=== PATIENT | male | born 1960 | race Two or more races ===

== ENCOUNTER 2019-10-08 15:03 | Inpatient (IN) | payer MEDICARE, MEDICAID ==
[2019-10-08] VITALS (7 sets, daily range): BP systolic 75–110; BP diastolic 23–75
[~2019-10-08] VITALS: Ht 180.3 cm; Wt 84.8 kg
--- NOTE | 2019-10-08 15:12 | Emergency Room Report ---
History of Present Illness General Chief Complaint: Syncope Source: Patient Present Illness HPI Patient is a 59-year-old male brought in by EMS after increased lightheadedness. Patient had been ambulating in the hot sun prior to onset of symptoms. He had been visiting his doctor's office for a finger injury. Reports having struck his left index finger on a fixed object and was reporting some increased pain to the area. He denies any recent fever or vomiting. He reports feeling somewhat lightheaded. Prior history of hypertension as well as HIV. He is currently on antiviral medications and reports having previously normal viral load and cell count. Primary care physician is Dr. Tay. Patient denies any cough or abdominal pain. Reports having a previous stroke in the past. Allergies: Coded Allergies: SULFAMETHOXAZOLE (Unverified Allergy, Unknown, 10/08/19) TRIMETHOPRIM (Unverified Allergy, Unknown, 10/08/19) COVID-19 Screening Contact w/high risk pt: No Recent Travel to affected area: No Experienced COVID-19 symptoms?: No Patient History Past Medical History: see triage record Reviewed Nursing Documentation: PMH: Agreed; PSxH: Agreed Nursing Documentation-PMH Past Medical History: No History, Except For Hx Hypertension: Yes Hx Cerebrovascular Accident: Yes Review of Systems All Other Systems: negative except mentioned in HPI Physical Exam Vital Signs Date Time Temp Pulse Resp B/P (MAP) Pulse Ox O2 Delivery O2 Flow Rate FiO2 10/08/19 15:02 84 18 90/60 (70) 95 Room Air Sp02 EP Interpretation: reviewed, normal General Appearance: normal inspection, well appearing, no apparent distress, alert, GCS 15 Head: atraumatic ENT: normal ENT inspection, hearing grossly normal, normal voice Neck: normal inspection, full range of motion, supple, no bony tend Respiratory: normal inspection, lungs clear, normal breath sounds, no respiratory distress, no retraction, no wheezing Cardiovascular #1: regular rate, rhythm, no edema Gastrointestinal: normal inspection, normal bowel sounds, non tender, soft, no guarding, no hernia Genitourinary: no CVA tenderness Musculoskeletal: normal inspection, back normal, normal range of motion Neurologic: alert, motor strength/tone normal, vp purchasing III-XII nml as tested, responsive, speech normal, normal inspection Psychiatric: normal inspection, judgement/insight normal, mood/affect normal Medical Decision Making Diagnostic Impression: Primary Impression: Syncope Additional Impressions: HIV (human immunodeficiency virus infection) ROLAND (acute kidney injury) ER Course Patient presented for near syncope. Differential diagnosis include was not limited to myocardial infarction, pulmonary embolism, dehydration, heatstroke among others. Because of complexity of patient's case laboratory tests and imaging studies were ordered. Patient was noted to be persistently hypotensive in the emergency department. He was given IV fluids without any change in his blood pressure. A EKG interpreted by me showed normal sinus rhythm with no acute ST or T wave changes consistent with recent myocardial infarction. Patient was noted to be taking blood pressure medication appears to be relatively Patient will be admitted for further monitoring and treatment. Labs Test 10/08/19 15:16 10/08/19 15:40 10/08/19 16:00 White Blood Count 5.4 K/UL (4.8-10.8) Red Blood Count 4.35 M/UL (4.70-6.10) Hemoglobin 13.9 G/DL (14.2-18.0) Hematocrit 41.5 % (42.0-52.0) Mean Corpuscular Volume 95 FL (80-99) Mean Corpuscular Hemoglobin 32.0 PG (27.0-31.0) Mean Corpuscular Hemoglobin Concent 33.6 G/DL (32.0-36.0) Red Cell Distribution Width 12.5 % (11.6-14.8) Platelet Count 163 K/UL (150-450) Mean Platelet Volume 7.8 FL (6.5-10.1) Neutrophils (%) (Auto) 48.5 % (45.0-75.0) Lymphocytes (%) (Auto) 38.5 % (20.0-45.0) Monocytes (%) (Auto) 10.4 % (1.0-10.0) Eosinophils (%) (Auto) 1.4 % (0.0-3.0) Basophils (%) (Auto) 1.2 % (0.0-2.0) Sodium Level 141 MMOL/L (136-145) Potassium Level 4.2 MMOL/L (3.5-5.1) Chloride Level 106 MMOL/L (98-107) Carbon Dioxide Level 24 MMOL/L (21-32) Anion Gap 11 mmol/L (5-15) Blood Urea Nitrogen 39 mg/dL (7-18) Creatinine 2.4 MG/DL (0.55-1.30) Estimat Glomerular Filtration Rate 28.0 mL/min (>60) Glucose Level 151 MG/DL (74-106) Calcium Level 8.8 MG/DL (8.5-10.1) Total Bilirubin 0.7 MG/DL (0.2-1.0) Aspartate Amino Transf (AST/SGOT) 24 U/L (15-37) Alanine Aminotransferase (ALT/SGPT) 34 U/L (12-78) Alkaline Phosphatase 58 U/L (46-116) Total Creatine Kinase 104 U/L (26-308) Troponin I 0.000 ng/mL (0.000-0.056) Pro-B-Type Natriuretic Peptide 86 pg/mL (0-125) Total Protein 6.7 G/DL (6.4-8.2) Albumin 3.6 G/DL (3.4-5.0) Globulin 3.1 g/dL Albumin/Globulin Ratio 1.2 (1.0-2.7) Lipase 129 U/L (73-393) D-Dimer 0.34 mg/L FEU (0.00-0.49) Urine Color Yellow Urine Appearance Cloudy Urine pH 5 (4.5-8.0) Urine Specific [place] 1.025 (1.005-1.035) Urine Protein 2+ (NEGATIVE) Urine Glucose (UA) Negative (NEGATIVE) Urine Ketones 1+ (NEGATIVE) Urine Blood 1+ (NEGATIVE) Urine Nitrite Negative (NEGATIVE) Urine Bilirubin 1+ (NEGATIVE) Urine Ictotest Negative (NEGATIVE) Urine Urobilinogen 1 MG/DL (0.0-1.0) Urine Leukocyte Esterase 1+ (NEGATIVE) Urine RBC 0-2 /HPF (0 - 0) Urine WBC 0-2 /HPF (0 - 0) Urine Squamous Epithelial Cells Few /LPF (NONE/OCC) Urine Bacteria Moderate /HPF (NONE) Urine Hyaline Casts Tntc /LPF (NONE) EKG Diagnostic Results Rate: normal Rhythm: NSR ST Segments: no acute changes Rhythm Strip Diag. Results EP Interpretation: yes Rhythm: NSR, no PVC's, no ectopy Last Vital Signs Date Time Temp Pulse Resp B/P (MAP) Pulse Ox O2 Delivery O2 Flow Rate FiO2 /5/20 15:02 84 18 90/60 (70) 95 Room Air Status: unchanged Disposition: ADMITTED INPATIENT Condition: Serious Baljit Kilpatrick MD October 08, 2019 15:12
--- NOTE | 2019-10-08 15:20 | NUR ---
ED Nurse Note: Pt walked into ED, came with weakness and dizziness. Pt was walking to wart removal appt and felt that he was going to have LOC, but had no LOC. Pt is alert and orientedx4, ambulatory. Pt is weak. Pt is set up to monitor and placed in isolation room. BP is 95/71.
[2019-10-08 15:48] LABS: BASOPHILS % (AUTO) 1.2 % (0.0-2.0); EOSINOPHILS % (AUTO) 1.4 % (0.0-3.0); HEMATOCRIT 41.5 % (42.0-52.0); HEMOGLOBIN 13.9 G/DL (14.2-18.0); LYMPHOCYTES % (AUTO) 38.5 % (20.0-45.0); MEAN CORPUSCULAR VOLUME 95 FL (80-99); MONOCYTES % (AUTO) 10.4 % (1.0-10.0); NEUTROPHILS % (AUTO) 48.5 % (45.0-75.0); PLATELET COUNT 163 K/UL (150-450); RED BLOOD COUNT 4.35 M/UL (4.70-6.10); RED CELL DISTRIBUTION WIDTH 12.5 % (11.6-14.8); WHITE BLOOD COUNT 5.4 K/UL (4.8-10.8)
--- NOTE | 2019-10-08 15:50 | NUR ---
ED Nurse Note: Dr Kilpatrick notified that BP 81/45. NS will be ordered.
[2019-10-08 15:57] LABS: ANION GAP 11 mmol/L (5-15); BLOOD UREA NITROGEN 39 mg/dL (7-18); CALCIUM 8.8 MG/DL (8.5-10.1); CARBON DIOXIDE 24 MMOL/L (21-32); CHLORIDE 106 MMOL/L (98-107); CREATININE 2.4 MG/DL (0.55-1.30); POTASSIUM 4.2 MMOL/L (3.5-5.1); SODIUM 141 MMOL/L (136-145)
[2019-10-08 16:08] LABS: ALANINE AMINOTRANSFERASE 34 U/L (12-78); ALBUMIN 3.6 G/DL (3.4-5.0); ALBUMIN/GLOBULIN RATIO 1.2 (1.0-2.7); ALKALINE PHOSPHATASE 58 U/L (46-116); ASPARTATE AMINO TRANSFERASE 24 U/L (15-37); BILIRUBIN,TOTAL 0.7 MG/DL (0.2-1.0); CREATINE KINASE 104 U/L (26-308)
[2019-10-08 16:20] LABS: APPEARANCE,URINE CLOUDY; BILIRUBIN, URINE 1+ (NEGATIVE); GLUCOSE, URINE (UA) NEGATIVE (NEGATIVE); KETONES,URINE 1+ (NEGATIVE); LEUKOCYTE ESTERASE ,URINE 1+ (NEGATIVE); NITRITE,URINE NEGATIVE (NEGATIVE); PH,URINE 5 (4.5-8.0); PROTEIN,URINE 2+ (NEGATIVE); UROBILINOGEN,URINE 1 MG/DL (0.0-1.0)
[2019-10-08 16:21] LABS: COLOR,URINE YELLOW
--- NOTE | 2019-10-08 16:53 | NUR ---
HAND-OFF: Report given to Garrick HONEYCUTT.
--- NOTE | 2019-10-08 16:54 | NUR ---
ED Nurse Note: Received handoff report from Mela HONEYCUTT, patient still hypotensive at 83/50. Patient denies dizziness, shortness of breath, or lightheadedness. Dr. Kilpatrick notified.
[2019-10-08] MEDS ORDERED: cefTRIAXone 1 GM in NS 55 ML IVPB ONE (17:00)
--- NOTE | 2019-10-08 17:00 | NUR ---
ED Nurse Note: Patient BP 75/23, Dr. Kilpatrick notified. MD will order Midodrine.
--- NOTE | 2019-10-08 17:02 | Diagnostic Imaging Report ---
Indication: Shortness of breath Technique: One view of the chest Comparison: none Findings: The lungs and pleural spaces are clear. The heart size is normal. Impression: Negative
[2019-10-08] MEDS ORDERED: D5 1/2NS w/KCl 20mEq 1,000 ML IV SCH (17:15)
--- NOTE | 2019-10-08 17:15 | NUR ---
ED Nurse Note: EKG to be repeated, Dr. Kilpatrick at bedside with ultrasound for bedside echo.
--- NOTE | 2019-10-08 17:45 | NUR ---
ED Nurse Note: Patient still asymptomatic, patient laying in bed reading book, states he feels ok, slightly tired. BP 99/58. VRE MRSA swabs obtained. Will continue to monitor.
--- NOTE | 2019-10-08 19:05 | NUR ---
ED Nurse Note: Received report from YINKA Chahal. Patient resting in bed, no acute distress noted.
--- NOTE | 2019-10-08 19:05 | NUR ---
HAND-OFF: Report given to Sandy HONEYCUTT.
--- NOTE | 2019-10-08 19:55 | NUR ---
ED Nurse Note: Report given to TALAT in SDU.
--- NOTE | 2019-10-08 20:13 | NUR ---
TRANSFER TO FLOOR: Patient transferred to SDU as ordered, per ERMD. Report given to YINKA GILLILAND. Patient transported via gurney on ACLS protocol with environmental monitoring specialist accompanied by 1 RN and patient support tech in stable condition.
--- NOTE | 2019-10-08 20:20 | NUR ---
NURSE NOTES: Received patient from YINKA [facility]. Pt awake oriented x 4, afebrile, able to communicate needs, no pain at this time and has no respiratory distress at room air saturating 100%. No complains of dizziness at this time.ekg monitor tech applied showing sinus rhythm. With right hand 18 G. With left forearm 18g IV lines. With Bed rails are up. Head of bed elevated. Needs were attended. Continue to monitor patient Addendum: 10/08/19 at 2042 by TALAT Cline RN Additional: Call light within reach. Will call Dr Adrian for admission orders
--- NOTE | 2019-10-08 20:37 | NUR ---
NURSE NOTES: Placed a call to Dr Adrian and left a voicemail to call us back for new admission orders. Awaiting response
--- NOTE | 2019-10-08 21:24 | NUR ---
NURSE NOTES: Left a follow up message to Dr Adrian. Awaiting for response.
--- NOTE | 2019-10-08 21:30 | NUR ---
NURSE NOTES: Received a message from Dr Adrian for admission orders of patient then carried out.
[2019-10-08] MEDS ORDERED: Acetaminophen 500mg (ES) tab ORAL PRN ×2 (21:45)
[2019-10-08] MEDS: D5 1/2NS 1,000 ML IV SCH (22:55)
[2019-10-09] VITALS: BP 111/60
--- NOTE | 2019-10-09 01:10 | NUR ---
NURSE NOTES: Patient asleep in bed, afebrile and has no respiratory distress. Call light within reach. bed in lowest position. Bed rails are up. Continue to monitor the patient.
[2019-10-09 04:00] VITALS: BP 100/57
[2019-10-09 06:22] LABS: HEMATOCRIT 37.6 % (42.0-52.0); HEMOGLOBIN 13.5 G/DL (14.2-18.0); MEAN CORPUSCULAR VOLUME 91 FL (80-99); PLATELET COUNT 150 K/UL (150-450); RED BLOOD COUNT 4.15 M/UL (4.70-6.10); WHITE BLOOD COUNT 5.6 K/UL (4.8-10.8)
--- NOTE | 2019-10-09 07:05 | NUR ---
HAND-OFF: Report given to Bruce Kelly RN. Pt stable and asleep in bed. Continue current care plan.
[2019-10-09 07:08] LABS: ALANINE AMINOTRANSFERASE 30 U/L (12-78); ALKALINE PHOSPHATASE 53 U/L (46-116); ANION GAP 9 mmol/L (5-15); ASPARTATE AMINO TRANSFERASE 19 U/L (15-37); BILIRUBIN,TOTAL 0.5 MG/DL (0.2-1.0); BLOOD UREA NITROGEN 29 mg/dL (7-18); CALCIUM 8.2 MG/DL (8.5-10.1); CARBON DIOXIDE 24 MMOL/L (21-32); CHLORIDE 109 MMOL/L (98-107); CREATININE 1.3 MG/DL (0.55-1.30); POTASSIUM 3.8 MMOL/L (3.5-5.1); SODIUM 142 MMOL/L (136-145)
--- NOTE | 2019-10-09 07:30 | NUR ---
NURSE NOTES: Per night nurse report, patient is unable to remember home medications and does not have anyone who can bring in list of home medications including antiretroviral medications. Noted. Will continue to monitor patient.
--- NOTE | 2019-10-09 07:55 | NUR ---
NURSE NOTES: Patient complained of soft diet. Patient noted able to swallow and chew meal without difficulty, no coughing noted. Contacted and informed Dr. Adrian of assessments, Dr. Adrian acknowledged and ordered to change diet to Regular diet. Order entered, noted, and carried out. Will continue to monitor patient.
[2019-10-09 08:00] VITALS: BP 142/70
--- NOTE | 2019-10-09 09:00 | NUR ---
NURSE NOTES: Patient noted alert and oriented x 4, able to follow commands. Instructed to use call light when assistance needed, call light is placed next to patient. Patient noted steady on feet when using urinal. Will continue to monitor patient.
[2019-10-09 12:00] VITALS: BP 120/67
[2019-10-09] MEDS: D5 1/2NS 1,000 ML IV SCH (12:22)
--- NOTE | 2019-10-09 13:10 | NUR ---
NURSE NOTES: Dr. Stuart seen and examined patient at bedside. This nurse informed Dr. Stuart that patient's heart rate goes as low as 55 bpm sinus bradycardia, BP 120/64. Dr. Stuart acknowledged and ordered TSH, T4, and troponin lab draws for tomorrow AM. Transfer patient to telemetry. Orders entered, noted, and carried out.
--- NOTE | 2019-10-09 13:23 | Cardiac Electrophysiology PN ---
Subjective Subjective [id number] Objective Last 24 Hour Vital Signs Date Time Temp Pulse Resp B/P (MAP) Pulse Ox O2 Delivery O2 Flow Rate FiO2 10/09/19 12:00 Room Air 10/09/19 12:00 96.3 63 18 120/67 (84) 100 64 10/09/19 09:00 Room Air 10/09/19 08:00 57 10/09/19 08:00 96.6 64 18 142/70 (94) 100 64 10/09/19 04:00 Room Air 10/09/19 04:00 96.8 60 100/57 (71) 10/09/19 03:52 54 10/09/19 00:00 Room Air 10/09/19 00:00 97.4 63 111/60 (77) 10/08/19 23:38 65 10/08/19 20:46 Room Air 10/08/19 20:13 97.9 62 17 112/68 99 Room Air 10/08/19 19:30 56 16 102/70 100 Room Air 10/08/19 18:58 59 17 89/56 100 Room Air 10/08/19 17:45 65 18 99/58 99 Room Air 10/08/19 17:39 97.5 67 17 89/61 99 Room Air 10/08/19 17:15 65 17 110/75 99 Room Air 10/08/19 17:00 64 18 75/23 99 Room Air 10/08/19 15:20 96.9 79 17 95/71 97 Room Air 10/08/19 15:02 84 18 90/60 (70) 95 Room Air Intake and Output 10/08/19 10/09/19 19:00 07:00 Intake Total 100 ml 855.8 ml Output Total 600 ml Balance 100 ml 255.8 ml Intake Oral 0 ml IV Total 100 ml 855.8 ml Output Urine Total 600 ml # Voids 3 Laboratory Tests Test 10/08/19 15:16 10/08/19 15:40 10/08/19 16:00 10/09/19 04:25 White Blood Count 5.4 K/UL (4.8-10.8) 5.6 K/UL (4.8-10.8) Red Blood Count 4.35 M/UL (4.70-6.10) L 4.15 M/UL (4.70-6.10) L Hemoglobin 13.9 G/DL (14.2-18.0) L 13.5 G/DL (14.2-18.0) L Hematocrit 41.5 % (42.0-52.0) L 37.6 % (42.0-52.0) L Mean Corpuscular Volume 95 FL (80-99) 91 FL (80-99) Mean Corpuscular Hemoglobin 32.0 PG (27.0-31.0) H 32.4 PG (27.0-31.0) H Mean Corpuscular Hemoglobin Concent 33.6 G/DL (32.0-36.0) 35.8 G/DL (32.0-36.0) Red Cell Distribution Width 12.5 % (11.6-14.8) 11.0 % (11.6-14.8) L Platelet Count 163 K/UL (150-450) 150 K/UL (150-450) Mean Platelet Volume 7.8 FL (6.5-10.1) 6.8 FL (6.5-10.1) Neutrophils (%) (Auto) 48.5 % (45.0-75.0) % (45.0-75.0) Lymphocytes (%) (Auto) 38.5 % (20.0-45.0) % (20.0-45.0) Monocytes (%) (Auto) 10.4 % (1.0-10.0) H % (1.0-10.0) Eosinophils (%) (Auto) 1.4 % (0.0-3.0) % (0.0-3.0) Basophils (%) (Auto) 1.2 % (0.0-2.0) % (0.0-2.0) Sodium Level 141 MMOL/L (136-145) 142 MMOL/L (136-145) Potassium Level 4.2 MMOL/L (3.5-5.1) 3.8 MMOL/L (3.5-5.1) Chloride Level 106 MMOL/L (98-107) 109 MMOL/L (98-107) H Carbon Dioxide Level 24 MMOL/L (21-32) 24 MMOL/L (21-32) Anion Gap 11 mmol/L (5-15) 9 mmol/L (5-15) Blood Urea Nitrogen 39 mg/dL (7-18) H 29 mg/dL (7-18) H Creatinine 2.4 MG/DL (0.55-1.30) H 1.3 MG/DL (0.55-1.30) Estimat Glomerular Filtration Rate 28.0 mL/min (>60) 56.9 mL/min (>60) Glucose Level 151 MG/DL (74-106) H 106 MG/DL (74-106) Calcium Level 8.8 MG/DL (8.5-10.1) 8.2 MG/DL (8.5-10.1) L Total Bilirubin 0.7 MG/DL (0.2-1.0) 0.5 MG/DL (0.2-1.0) Aspartate Amino Transf (AST/SGOT) 24 U/L (15-37) 19 U/L (15-37) Alanine Aminotransferase (ALT/SGPT) 34 U/L (12-78) 30 U/L (12-78) Alkaline Phosphatase 58 U/L (46-116) 53 U/L (46-116) Total Creatine Kinase 104 U/L (26-308) Troponin I 0.000 ng/mL (0.000-0.056) Pro-B-Type Natriuretic Peptide 86 pg/mL (0-125) Total Protein 6.7 G/DL (6.4-8.2) 5.9 G/DL (6.4-8.2) L Albumin 3.6 G/DL (3.4-5.0) 3.0 G/DL (3.4-5.0) L Globulin 3.1 g/dL 2.9 g/dL Albumin/Globulin Ratio 1.2 (1.0-2.7) 1.0 (1.0-2.7) Lipase 129 U/L (73-393) D-Dimer 0.34 mg/L FEU (0.00-0.49) Urine Color Yellow Urine Appearance Cloudy Urine pH 5 (4.5-8.0) Urine Specific [place] 1.025 (1.005-1.035) Urine Protein 2+ (NEGATIVE) H Urine Glucose (UA) Negative (NEGATIVE) Urine Ketones 1+ (NEGATIVE) H Urine Blood 1+ (NEGATIVE) H Urine Nitrite Negative (NEGATIVE) Urine Bilirubin 1+ (NEGATIVE) H Urine Ictotest Negative (NEGATIVE) Urine Urobilinogen 1 MG/DL (0.0-1.0) H Urine Leukocyte Esterase 1+ (NEGATIVE) H Urine RBC 0-2 /HPF (0 - 0) H Urine WBC 0-2 /HPF (0 - 0) Urine Squamous Epithelial Cells Few /LPF (NONE/OCC) Urine Bacteria Moderate /HPF (NONE) H Urine Hyaline Casts Tntc /LPF (NONE) H Differential Total Cells Counted 100 Neutrophils % (Manual) 41 % (45-75) L Lymphocytes % (Manual) 53 % (20-45) H Monocytes % (Manual) 6 % (1-10) Eosinophils % (Manual) 0 % (0-3) Basophils % (Manual) 0 % (0-2) Band Neutrophils 0 % (0-8) Platelet Estimate Adequate Platelet Morphology Normal Red Blood Cell Morphology Normal Microbiology Date/Time Source Procedure Growth Status 10/08/19 16:00 Urine,Clean Catch Urine Culture - Preliminary NO GROWTH Resulted Maynor Stuart MD October 09, 2019 13:23
--- NOTE | 2019-10-09 14:19 | Consultation ---
Consult Note Consult Note I am asked to evaluate the patient at the request of Dr. Adrian for renal failure. Patient came into emergency room with lightheadedness, and at that time was hypotensive. Emergency room note: Chief Complaint: Syncope Patient is a 59-year-old male brought in by EMS after increased lightheadedness. Patient had been ambulating in the hot sun prior to onset of symptoms. He had been visiting his doctor's office for a finger injury. Reports having struck his left index finger on a fixed object and was reporting some increased pain to the area. He denies any recent fever or vomiting. He reports feeling somewhat lightheaded. Prior history of hypertension as well as HIV. He is currently on antiviral medications and reports having previously normal viral load and cell count. Primary care physician is Dr. Tay. Patient denies any cough or abdominal pain. Reports having a previous stroke in the past. Allergies: SULFAMETHOXAZOLE (Unverified Allergy, Unknown, 10/08/19) TRIMETHOPRIM (Unverified Allergy, Unknown, 10/08/19) COVID-19 Screening Contact w/high risk pt: No Recent Travel to affected area: No Experienced COVID-19 symptoms?: No Past Medical History: No History, Except For Hx Hypertension: Yes Hx Cerebrovascular Accident: Yes Patient interviewed Data reviewed Examined . Assessment/Plan Acute renal failure on presentation most likely due to dehydration Hypotension on presentation again due to dehydration Proteinuria History of hypertension History of HIV disease Hydrate Monitor renal parameters Monitor blood pressure Saline bolus as needed Continue per consultants Alcon Lambert MD October 09, 2019 14:19
[2019-10-09 16:00] VITALS: BP 141/86
--- NOTE | 2019-10-09 16:09 | NUR ---
NURSE NOTES: Called patient's primary physician's office, Dr. Tay, , as that patient cannot remember what medications he is on and patient is on antiretrovirals. Left message with number provided. Awaiting call back. Will continue to monitor patient.
--- NOTE | 2019-10-09 16:26 | NUR ---
NURSE NOTES: [employer] SAW MARKER with Dr. Galvan patient's PCP called back nurse station, this nurse requested list of patient's medications. Grupo acknowledged and gave this unit's fax number to receive list of patient's medications. Will continue to monitor patient.
--- NOTE | 2019-10-09 17:34 | NUR ---
NURSE NOTES: Received list of patient medications from patient's PCP office. This nurse went over list of medications item by item. Patient is alert and oriented x 4 noted. Per patients states "a doctor told me, I think it was a kidney doctor, I don't know their name, not to take my medications for at least two days." List of medications entered in medications reconciliation. Patient's rn labor and delivery on case is Dr. Lambert, called and left message for further instructions. Noted. Will continue to monitor patient.
[2019-10-09] MEDS ORDERED: ASPIRIN81 M3 PO (17:50)
[2019-10-09] MEDS ORDERED: CRESTOR20 MG ORAL (17:50)
[2019-10-09] MEDS ORDERED: LISINOPRIL20 MG ORAL (17:50)
[2019-10-09] MEDS ORDERED: SYMTUZA 800-151 EACH PO (17:50)
[2019-10-09] MEDS ORDERED: SELZENTRY150 MG ORAL (17:50)
--- NOTE | 2019-10-09 18:25 | NUR ---
CASE MANAGEMENT: REVIEW 59 YEAR OLD MALE BIBA FROM HOME CC: SYNCOPE . HX HIV SI: SYNCOPE . HYPOTENSION . COVID-19 R/O T 96.9 HR 79 RR 17 BP 75/23 SAT 95% ROOM AIR H/H 13.9/41.5 BUN 39 CR 2.4 IS: NS IVF BOLUS X1 CEFTRIAXONE IV X1 PATIENT ADMITTED TO STEP DOWN UNIT 10/08/2019 DCP: PATIENT IS FROM HOME
--- NOTE | 2019-10-09 19:16 | NUR ---
HAND-OFF: Report given to YINKA Chen.
--- NOTE | 2019-10-09 19:30 | NUR ---
NURSE NOTES: Received patient from Bruce HONEYCUTT. Upon visual inspection, patient sleeping in bed with no acute distress. Will continue to monitor.
[2019-10-09 20:00] VITALS: BP 130/70
--- NOTE | 2019-10-09 20:00 | Consultation ---
DATE OF CONSULTATION: 10/09/2019 PULMONARY CONSULTATION HISTORY OF PRESENT ILLNESS: This is a 59-year-old male who was brought to the hospital with lightheadedness. The patient states he had been in the sun for a number of hours. He also reports he had recent finger injury. The patient was seen and worked up in the emergency room and admitted to the hospital. The patient reports a previous history of HIV positivity and hypertension. ALLERGIES: Sulfa. SOCIAL HISTORY: Denies alcohol or tobacco usage. PAST MEDICAL HISTORY: Hypertension, previous CVA, HIV positivity. REVIEW OF SYSTEMS: Denies any headaches, hematemesis, melena, hematochezia, night sweats, or weight loss. PHYSICAL EXAMINATION: GENERAL: Reveals a 59-year-old male. VITAL SIGNS: Blood pressure is 90/60, heart rate 84, respiratory rate 18, and he is afebrile. HEENT: Unremarkable. CHEST: Shows clear breath sounds bilaterally with normal heart sounds. ABDOMEN: Soft. EXTREMITIES: There is no edema. LABORATORY DATA: Lab testing shows hemoglobin of 13, otherwise normal CBC and BMP. Urinalysis negative. Coags negative. D-dimer is normal. IMAGING STUDIES: X-ray of chest was obtained, which shows clear lung dykes bilaterally. IMPRESSION: 1. Syncope. 2. HIV. 3. Hypertension. DISCUSSION: Currently, the patient is saturating well on room air. We will continue to monitor. Empiric antibiotics have been given as well as fluids. The patient also received in the ER. We will discontinue further usage. We will follow carefully. Virgil Morales M.D. DR: Devon JOB#: [id number] CC:
--- NOTE | 2019-10-09 21:30 | NUR ---
NURSE NOTES: Patient AO4; presents with no neuro or mobility deficits. Attached to cardiac technician; SB-SR mid 50's when asleep. Respirations even and unlabored; Spo2 100% on room air. Bowel sounds present in all 4 quadrants; regular diet; patient request sandwich. Urinal at bedside; patient continent x2. Skin intact. Patient presents with full ROM and able to ambulate with steady gait. IV present on left forearm 18g; flushed and patent; fluids running as prescribed. Redness noted on right hand IV 18g; patient reports pain around site; D/C line. Oriented patient to fall risk with attached IV; patient verbalize understanding and demonstrate use of call light. Discussed plan of care with patient. Patient irate and states "You cannot keep me here. I am leaving. If will rip off all these wires and walk out of here." Explained risk and benefits x3; patient states he will stay tonight but will sign out AMA by 10/09 1800. Provided patient with nourishment. Patient agreed to plan of care. Medicated as prescribed. Patient calm and cooperative. Droplet precautions observed. All safety measures met; side rails raised x3; bed locked at lowest position; call light within reach; reinforced use of call light . Will continue to monitor closely.
--- NOTE | 2019-10-09 21:45 | Consultation ---
DATE OF CONSULTATION: 10/09/2019 INFECTIOUS DISEASES CONSULTATION CONSULTING PHYSICIAN: Dez Moon MD. PRIMARY ATTENDING: Arie Adrian MD. REASON FOR CONSULT: HIV, rule out COVID-19, presyncope. HISTORY OF PRESENT ILLNESS: This is a 59-year-old male admitted yesterday from home. He was walking in the sun and became lightheaded. Denies any fever, chills, or any systemic symptoms. He was afebrile and had no leukocytosis. PAST MEDICAL HISTORY: HIV for 20 years, hypertension, history of CVA. ALLERGIES: Allergic to Bactrim. MEDICATIONS: Tylenol, dextrose, sodium chloride. Got a dose of ceftriaxone in the ER. SOCIAL HISTORY: Single. Denies alcohol, drug abuse, or smoking. Denies sick contacts. REVIEW OF SYSTEMS: No fever. No chills. No coughing. No shortness of breath. No nausea. No vomiting. No diarrhea. No problem passing urine. PHYSICAL EXAMINATION: VITAL SIGNS: Temperature 96.6, pulse 64, blood pressure 144/70. GENERAL APPEARANCE: Seems to have normal weight. HEAD AND NECK: [place] conjunctivae. HEART: Normal rate. LUNGS: Clear. ABDOMEN: Soft and nontender. EXTREMITIES: Has no edema. NEUROLOGIC: He is awake, alert, oriented x3. LABORATORY AND DIAGNOSTIC DATA: WBC 5.6, hemoglobin 13.5, hematocrit 37.6, platelets 150. Sodium 142, potassium 3.8, chloride 109, bicarb 24, BUN 29, creatinine 1.8. BUN was 39 and creatinine was 2.4 at the time of admission. Albumin is 3. UA showed wbc's of 0 to 2. Urine culture, no growth. Chest x-ray negative. IMPRESSION: HIV. Patient takes unknown medication for the HIV control. Rule out COVID-19, presyncope, acute renal failure secondary to dehydration, hypertension. RECOMMENDATION: Observe off antibiotic. We will follow COVID-19 tests. At the end of my exam, I thank Dr. Adrian for involving me in the care of this patient. Dez Moon M.D. DR: /janet JOB#: [id number] CC:
--- NOTE | 2019-10-09 22:30 | Consultation ---
DATE OF CONSULTATION: 10/09/2019 CARDIOLOGY CONSULTATION CONSULTING PHYSICIAN: Maynor Stuatr MD REFERRING PHYSICIAN: Arie Adrian MD REASON FOR CONSULTATION: Bradycardia. HISTORY OF PRESENT ILLNESS: The patient is a 59-year-old gentleman who was brought in for increased lightheadedness. The patient was ambulating in the hot sun which aggravated his symptoms and he is visiting the doctor's office for finger injury. The patient has a history of hypertension and HIV and is currently on anti-retroviral agents. The patient stated that he has had normal cell count and viral load and is usually followed by Dr. Spears. The patient was noted to be bradycardic and a Cardiology consultation was obtained for further evaluation. The patient currently is being ruled out for COVID. REVIEW OF SYSTEMS: Negative other than what is mentioned in the history of present illness. PAST MEDICAL HISTORY: As mentioned above. FAMILY HISTORY: Noncontributory. SOCIAL HISTORY: Does not smoke or drink alcohol. PHYSICAL EXAMINATION: VITAL SIGNS: Blood pressure 120/60, pulse 60, respirations 18, temperature 96.3. HEAD AND NECK: Show no JVD. LUNGS: Clear. CARDIOVASCULAR: Shows regular S1 and S2 with no gallop. ABDOMEN: Soft. EXTREMITIES: No pitting edema. LABORATORY AND DIAGNOSTIC DATA: His labs show white count 5.6, hemoglobin 13.5, hematocrit 37.7, platelet count of 150. Sodium 142, potassium 3.8, BUN of 29, creatinine 1.3, and glucose of 106. His first troponin is negative. D-dimer is 0.34. ASSESSMENT AND PLAN: 1. Bradycardia. We will check the thyroid function tests and completely rule out IN protocol and get an echocardiogram as well. 2. HIV. The patient was on anti-retroviral therapy. 3. Weakness. The patient is being ruled out for COVID. 4. The patient will be also getting a carotid duplex in view of his presyncopal episode and dizziness. Thank you very much for allowing me to participate in the care of this patient. Please do not hesitate to contact me for any questions regarding my evaluation. Maynor Stuart M.D. DR: ROBBIE JOB#: [id number] CC:
--- NOTE | 2019-10-09 23:15 | History and Physical Report ---
DATE OF ADMISSION: 10/08/2019 HISTORY OF PRESENT ILLNESS: The patient is admitted for pancreatitis, low blood pressure, near syncope, azotemia, and acute renal failure. The patient was hypotensive. The patient has history of HIV. We need to also rule out dehydration. The patient had dizziness. The patient also feels dizziness and high potential of HIV. The viral load is undetectable. Denies nausea, vomiting, diarrhea, or abdominal pain. Denies shortness of breath. Denies cough. Denies headache. PAST MEDICAL HISTORY: Hypertension, history of CVA, history of HIV, and hypertension. PAST SURGICAL HISTORY: None known. ALLERGIES: To Bactrim. MEDICATIONS: We do not have the list of medications. We need to call the caregiver from the family. FAMILY HISTORY: Noncontributory. SOCIAL HISTORY: Denies history of smoking. Denies alcohol or drugs. REVIEW OF SYSTEMS: HEENT: Denies headaches. RESPIRATORY: Denies shortness of breath. Denies cough. CARDIOVASCULAR: Denies chest pain. GASTROINTESTINAL: Denies nausea, vomiting, or diarrhea. EXTREMITIES: Denies pain. CENTRAL NERVOUS SYSTEM: Has dizziness and lightheadedness. PHYSICAL EXAMINATION: VITAL SIGNS: Temperature is 96.3, pulse is 64 and blood pressure 140/70. HEENT: PERRLA. NECK: Supple. No lymphadenopathy. CHEST: Clear to auscultation. CARDIOVASCULAR: Regular rate and rhythm. No murmurs or extra sounds. GASTROINTESTINAL: Soft, nontender. No organomegaly. EXTREMITIES: No edema. NEUROLOGIC: Has generalized weakness. LABORATORY DATA: WBC of 5.4, hemoglobin of 13.9 and platelet 163. Sodium 141, potassium of 4.2, BUN of 39, and creatinine of 2.4. ASSESSMENT AND PLAN: Near-syncope, acute renal failure, hypertension, dehydration, and HIV. I have asked Dr. Lambert, Dr. Stuart, Dr. Virgil Morales, Dr. Dez Richter, and Dr. Nelson see the patient for the above-mentioned abnormality symptoms and abnormal laboratories and imaging studies. Antibiotics per Dr. Dez Moon with negative syncopal workup. It could be due to dehydration. Renal failure could be due to dehydration. The patient will need IV fluids. Dr. Cohen is also consulted for IV fluid management. Ali Shanice Adrian DR: Tyrone JOB#: [id number] CC:
--- NOTE | 2019-10-09 23:30 | NUR ---
NURSE NOTES: Patient used call light to inform staff of toileting needs. Unattached patient to IV and supervised patient ambulate with steady gait to bathroom. Assisted patient back to bed and reattached to IV infusion. Patient remains calm with no acute distress. Vitals remain stable to vitals. All safety measures met.
[2019-10-10] VITALS: BP 132/80
[2019-10-10 04:00] VITALS: BP 110/70
--- NOTE | 2019-10-10 04:00 | NUR ---
NURSE NOTES: Patient sleeping in bed with no acute distress. Vital stable to baseline; SB 50's while asleep. AM labs drawn; sent down to lab. EKG done at bedside; placed in chart. Initiated new bag of IV fluids. Offered patient am care; patient refused. Per patient "leave gown and linens on table, I will wash up when I wake up." All safety measures met. Will continue to monitor.
[2019-10-10] MEDS: D5 1/2NS 1,000 ML IV SCH (04:13)
[2019-10-10 06:23] LABS: BASOPHILS % (AUTO) 0.9 % (0.0-2.0); HEMATOCRIT 38.7 % (42.0-52.0); HEMOGLOBIN 13.8 G/DL (14.2-18.0); LYMPHOCYTES % (AUTO) 48.1 % (20.0-45.0); MEAN CORPUSCULAR VOLUME 90 FL (80-99); NEUTROPHILS % (AUTO) 42.9 % (45.0-75.0); PLATELET COUNT 171 K/UL (150-450); RED BLOOD COUNT 4.28 M/UL (4.70-6.10); WHITE BLOOD COUNT 5.8 K/UL (4.8-10.8)
[2019-10-10 06:49] LABS: ALANINE AMINOTRANSFERASE 31 U/L (12-78); ALBUMIN 3.1 G/DL (3.4-5.0); ALBUMIN/GLOBULIN RATIO 1.1 (1.0-2.7); ALKALINE PHOSPHATASE 62 U/L (46-116); ANION GAP 8 mmol/L (5-15); ASPARTATE AMINO TRANSFERASE 21 U/L (15-37); BILIRUBIN,TOTAL 0.4 MG/DL (0.2-1.0); BLOOD UREA NITROGEN 19 mg/dL (7-18); CALCIUM 8.6 MG/DL (8.5-10.1); CARBON DIOXIDE 26 MMOL/L (21-32); CHLORIDE 112 MMOL/L (98-107); POTASSIUM 4.4 MMOL/L (3.5-5.1); SODIUM 145 MMOL/L (136-145)
--- NOTE | 2019-10-10 07:19 | NUR ---
HAND-OFF: Report given to YINKA Barrera. Patient instable condition. Endorsed patient wish to leave AMA by 1800 tonight.
[2019-10-10 08:00] VITALS: BP 140/67
--- NOTE | 2019-10-10 08:57 | Nephrology Progress Note ---
Assessment/Plan Problem List: (1) ROLAND (acute kidney injury) (2) Dehydration (3) Syncope (4) HIV (human immunodeficiency virus infection) Assessment Acute renal failure on presentation most likely due to dehydration Hypotension on presentation again due to dehydration Proteinuria History of hypertension History of HIV disease Plan Patient's renal parameters improved with hydration Blood pressure is now improved Not much to add from renal standpoint of view Will discontinue IV fluid and encourage p.o. fluid intake Agree with discharge planning Continue per consultants Discussed the kidney issues with the patient Subjective ROS Limited/Unobtainable: No Constitutional: Reports: other - Anxious to be discharged Objective Objective Last 24 Hour Vital Signs Date Time Temp Pulse Resp B/P (MAP) Pulse Ox O2 Delivery O2 Flow Rate FiO2 10/10/19 04:00 Room Air 10/10/19 04:00 50 10/10/19 04:00 97.9 50 14 110/70 (83) 100 10/10/19 00:00 56 10/10/19 00:00 Room Air 10/10/19 00:00 97.8 56 14 132/80 (97) 100 10/09/19 20:00 53 10/09/19 20:00 97.9 53 18 130/70 (90) 100 10/09/19 20:00 Room Air 10/09/19 16:00 Room Air 10/09/19 16:00 97.7 67 18 141/86 (104) 100 67 10/09/19 16:00 68 10/09/19 12:00 66 10/09/19 12:00 Room Air 10/09/19 12:00 96.3 63 18 120/67 (84) 100 64 10/09/19 09:00 Room Air Intake and Output 10/09/19 10/10/19 19:00 07:00 Intake Total 420 ml 754 ml Output Total 1400 ml 1000 ml Balance -980 ml -246 ml IV Total 420 ml 754 ml Output Urine Total 1400 ml 1000 ml # Voids 6 4 # Bowel Movements 1 2 Current Medications Medications (Trade) Dose Ordered Sig/Shanti Route PRN Reason Start Time Stop Time Status Last Admin Dose Admin Acetaminophen (Tylenol) 500 mg Q4H PRN ORAL Mild Pain (Pain Scale 1-3) 10/08/19 21:45 11/07/19 21:44 Acetaminophen (Tylenol) 500 mg Q4H PRN ORAL Temp>100.5 10/08/19 21:45 11/07/19 21:44 Dextrose/Sodium Chloride 1,000 ml @ 70 mls/hr [id number] IV 10/08/19 22:45 11/07/19 22:44 10/10/19 04:13 Pantoprazole (Protonix) 40 mg EVERY 12 HOURS ORAL 10/09/19 21:00 11/08/19 20:59 10/09/19 21:21 Laboratory Tests 10/10/19 04:00: White Blood Count 5.8, Red Blood Count 4.28L, Hemoglobin 13.8L, Hematocrit 38.7L , Mean Corpuscular Volume 90, Mean Corpuscular Hemoglobin 32.3H, Mean Corpuscular Hemoglobin Concent 35.7, Red Cell Distribution Width 11.0L, Platelet Count 171, Mean Platelet Volume 5.9L, Neutrophils (%) (Auto) 42.9L, Lymphocytes (%) (Auto) 48.1H, Monocytes (%) (Auto) 6.0, Eosinophils (%) (Auto) 2.0, Basophils (%) (Auto) 0.9, Sodium Level 145, Potassium Level 4.4, Chloride Level 112H, Carbon Dioxide Level 26, Anion Gap 8, Blood Urea Nitrogen 19H, Creatinine 1.0, Estimat Glomerular Filtration Rate > 60, Glucose Level 96, Hemoglobin A1c 5.6, Uric Acid [Pending], Calcium Level 8.6, Phosphorus Level [ Pending], Magnesium Level [Pending], Total Bilirubin 0.4, Gamma Glutamyl Transpeptidase [Pending], Aspartate Amino Transf (AST/SGOT) 21, Alanine Aminotransferase (ALT/SGPT) 31, Alkaline Phosphatase 62, Troponin I [Pending], Total Protein 5.9L, Albumin 3.1L, Globulin 2.8, Albumin/Globulin Ratio 1.1, Triglycerides Level [Pending], Cholesterol Level [Pending], LDL Cholesterol [ Pending], HDL Cholesterol [Pending], Cholesterol/HDL Ratio [Pending], Thyroid Stimulating Hormone (TSH) 1.063, Free Thyroxine 0.95 Height (Feet): 5 Height (Inches): 11.00 Weight (Pounds): 187 General Appearance: no apparent distress Cardiovascular: normal rate Respiratory/Chest: lungs clear Abdomen: soft Alcon Lambert MD October 10, 2019 08:57
[2019-10-10 09:22] LABS: CHOLESTEROL 144 MG/DL (< 200); GAMMA GLUTAMYL TRANSPEPTIDASE 37 U/L (5-85); HDL CHOLESTEROL 42 MG/DL (40-60); PHOSPHORUS 3.4 MG/DL (2.5-4.9); TRIGLYCERIDES 188 MG/DL (30-150)
--- NOTE | 2019-10-10 10:19 | Infectious Diseases Prog Note ---
Assessment/Plan Assessment/Plan IMPRESSION: HIV. on Selzentry & Symtuza at home Rule out COVID-19, presyncope, Acute renal failure Dehydration, Hypertension. RECOMMENDATION: Observe off antibiotic. Can be discharged to home Can resume HIV medications. We will follow COVID-19 tests. Case was D/W RN Subjective ROS Limited/Unobtainable: Yes Constitutional: Denies: fever Allergies: Coded Allergies: SULFAMETHOXAZOLE (Unverified Allergy, Unknown, 10/08/19) TRIMETHOPRIM (Unverified Allergy, Unknown, 10/08/19) Objective Vital Signs Last 24 Hour Vital Signs Date Time Temp Pulse Resp B/P (MAP) Pulse Ox O2 Delivery O2 Flow Rate FiO2 10/10/19 08:00 Room Air 10/10/19 08:00 97.5 62 16 140/67 (91) 98 10/10/19 04:00 Room Air 10/10/19 04:00 50 10/10/19 04:00 97.9 50 14 110/70 (83) 100 10/10/19 00:00 56 10/10/19 00:00 Room Air 10/10/19 00:00 97.8 56 14 132/80 (97) 100 10/09/19 20:00 53 10/09/19 20:00 97.9 53 18 130/70 (90) 100 10/09/19 20:00 Room Air 10/09/19 16:00 Room Air 10/09/19 16:00 97.7 67 18 141/86 (104) 100 67 10/09/19 16:00 68 10/09/19 12:00 66 10/09/19 12:00 Room Air 10/09/19 12:00 96.3 63 18 120/67 (84) 100 64 Height (Feet): 5 Height (Inches): 11.00 Weight (Pounds): 187 General Appearance: no acute distress HEENT: mucous membranes moist Respiratory/Chest: lungs clear Cardiovascular: normal rate Abdomen: soft, non tender Extremities: no edema Neurologic/Psychiatric: other - sleeping Microbiology Date/Time Source Procedure Growth Status 10/08/19 16:00 Urine,Clean Catch Urine Culture - Preliminary NO GROWTH AFTER 24 HOURS Resulted Laboratory Tests Test 10/10/19 04:00 White Blood Count 5.8 K/UL (4.8-10.8) Red Blood Count 4.28 M/UL (4.70-6.10) L Hemoglobin 13.8 G/DL (14.2-18.0) L Hematocrit 38.7 % (42.0-52.0) L Mean Corpuscular Volume 90 FL (80-99) Mean Corpuscular Hemoglobin 32.3 PG (27.0-31.0) H Mean Corpuscular Hemoglobin Concent 35.7 G/DL (32.0-36.0) Red Cell Distribution Width 11.0 % (11.6-14.8) L Platelet Count 171 K/UL (150-450) Mean Platelet Volume 5.9 FL (6.5-10.1) L Neutrophils (%) (Auto) 42.9 % (45.0-75.0) L Lymphocytes (%) (Auto) 48.1 % (20.0-45.0) H Monocytes (%) (Auto) 6.0 % (1.0-10.0) Eosinophils (%) (Auto) 2.0 % (0.0-3.0) Basophils (%) (Auto) 0.9 % (0.0-2.0) Sodium Level 145 MMOL/L (136-145) Potassium Level 4.4 MMOL/L (3.5-5.1) Chloride Level 112 MMOL/L (98-107) H Carbon Dioxide Level 26 MMOL/L (21-32) Anion Gap 8 mmol/L (5-15) Blood Urea Nitrogen 19 mg/dL (7-18) H Creatinine 1.0 MG/DL (0.55-1.30) Estimat Glomerular Filtration Rate > 60 mL/min (>60) Glucose Level 96 MG/DL (74-106) Hemoglobin A1c 5.6 % (4.3-6.0) Uric Acid 5.1 MG/DL (2.6-7.2) Calcium Level 8.6 MG/DL (8.5-10.1) Phosphorus Level 3.4 MG/DL (2.5-4.9) Magnesium Level 1.9 MG/DL (1.8-2.4) Total Bilirubin 0.4 MG/DL (0.2-1.0) Gamma Glutamyl Transpeptidase 37 U/L (5-85) Aspartate Amino Transf (AST/SGOT) 21 U/L (15-37) Alanine Aminotransferase (ALT/SGPT) 31 U/L (12-78) Alkaline Phosphatase 62 U/L (46-116) Troponin I 0.003 ng/mL (0.000-0.056) Total Protein 5.9 G/DL (6.4-8.2) L Albumin 3.1 G/DL (3.4-5.0) L Globulin 2.8 g/dL Albumin/Globulin Ratio 1.1 (1.0-2.7) Triglycerides Level 188 MG/DL (30-150) H Cholesterol Level 144 MG/DL (< 200) LDL Cholesterol 70 mg/dL (<100) HDL Cholesterol 42 MG/DL (40-60) Cholesterol/HDL Ratio 3.4 (3.3-4.4) Thyroid Stimulating Hormone (TSH) 1.063 uiU/mL (0.358-3.740) Free Thyroxine 0.95 NG/DL (0.76-1.46) Current Medications Medications (Trade) Dose Ordered Sig/Shanti Route PRN Reason Start Time Stop Time Status Last Admin Dose Admin Acetaminophen (Tylenol) 500 mg Q4H PRN ORAL Mild Pain (Pain Scale 1-3) 10/08/19 21:45 11/07/19 21:44 Acetaminophen (Tylenol) 500 mg Q4H PRN ORAL Temp>100.5 10/08/19 21:45 11/07/19 21:44 Pantoprazole (Protonix) 40 mg EVERY 12 HOURS ORAL 10/09/19 21:00 11/08/19 20:59 10/10/19 09:57 Dez Moon MD October 10, 2019 10:19
--- NOTE | 2019-10-10 11:00 | Pulmonology Progress Note ---
Subjective ROS Limited/Unobtainable: Yes Interval Events: none Constitutional: Denies: fever HEENT: Repors: no symptoms Respiratory: Reports: no symptoms Cardiovascular: Reports: no symptoms Gastrointestinal/Abdominal: Reports: no symptoms Genitourinary: Reports: no symptoms Allergies: Coded Allergies: SULFAMETHOXAZOLE (Unverified Allergy, Unknown, 10/08/19) TRIMETHOPRIM (Unverified Allergy, Unknown, 10/08/19) Objective Last 24 Hour Vital Signs Date Time Temp Pulse Resp B/P (MAP) Pulse Ox O2 Delivery O2 Flow Rate FiO2 10/10/19 08:00 Room Air 10/10/19 08:00 60 10/10/19 08:00 97.5 62 16 140/67 (91) 98 10/10/19 04:00 Room Air 10/10/19 04:00 50 10/10/19 04:00 97.9 50 14 110/70 (83) 100 10/10/19 00:00 56 10/10/19 00:00 Room Air 10/10/19 00:00 97.8 56 14 132/80 (97) 100 10/09/19 20:00 53 10/09/19 20:00 97.9 53 18 130/70 (90) 100 10/09/19 20:00 Room Air 10/09/19 16:00 Room Air 10/09/19 16:00 97.7 67 18 141/86 (104) 100 67 10/09/19 16:00 68 10/09/19 12:00 66 10/09/19 12:00 Room Air 10/09/19 12:00 96.3 63 18 120/67 (84) 100 64 Intake and Output 10/09/19 10/10/19 19:00 07:00 Intake Total 420 ml 754 ml Output Total 1400 ml 1000 ml Balance -980 ml -246 ml IV Total 420 ml 754 ml Output Urine Total 1400 ml 1000 ml # Voids 6 4 # Bowel Movements 1 2 General Appearance: no acute distress HEENT: mucous membranes moist Respiratory/Chest: chest wall non-tender, lungs clear Cardiovascular: normal peripheral pulses, normal rate Abdomen: soft, non tender Extremities: no edema Neurologic/Psychiatric: other - sleeping Microbiology Date/Time Source Procedure Growth Status 10/08/19 16:00 Urine,Clean Catch Urine Culture - Preliminary NO GROWTH AFTER 24 HOURS Resulted Laboratory Tests 10/10/19 04:00: White Blood Count 5.8, Red Blood Count 4.28L, Hemoglobin 13.8L, Hematocrit 38.7L , Mean Corpuscular Volume 90, Mean Corpuscular Hemoglobin 32.3H, Mean Corpuscular Hemoglobin Concent 35.7, Red Cell Distribution Width 11.0L, Platelet Count 171, Mean Platelet Volume 5.9L, Neutrophils (%) (Auto) 42.9L, Lymphocytes (%) (Auto) 48.1H, Monocytes (%) (Auto) 6.0, Eosinophils (%) (Auto) 2.0, Basophils (%) (Auto) 0.9, Sodium Level 145, Potassium Level 4.4, Chloride Level 112H, Carbon Dioxide Level 26, Anion Gap 8, Blood Urea Nitrogen 19H, Creatinine 1.0, Estimat Glomerular Filtration Rate > 60, Glucose Level 96, Hemoglobin A1c 5.6, Uric Acid 5.1, Calcium Level 8.6, Phosphorus Level 3.4, Magnesium Level 1.9, Total Bilirubin 0.4, Gamma Glutamyl Transpeptidase 37, Aspartate Amino Transf (AST/SGOT) 21, Alanine Aminotransferase (ALT/SGPT) 31, Alkaline Phosphatase 62, Troponin I 0.003, Total Protein 5.9L, Albumin 3.1L, Globulin 2.8, Albumin/Globulin Ratio 1.1, Triglycerides Level 188H, Cholesterol Level 144, LDL Cholesterol 70, HDL Cholesterol 42, Cholesterol/HDL Ratio 3.4, Thyroid Stimulating Hormone (TSH) 1.063, Free Thyroxine 0.95 Current Medications Medications (Trade) Dose Ordered Sig/Shanti Route PRN Reason Start Time Stop Time Status Last Admin Dose Admin Acetaminophen (Tylenol) 500 mg Q4H PRN ORAL Mild Pain (Pain Scale 1-3) 10/08/19 21:45 11/07/19 21:44 Acetaminophen (Tylenol) 500 mg Q4H PRN ORAL Temp>100.5 10/08/19 21:45 11/07/19 21:44 Pantoprazole (Protonix) 40 mg EVERY 12 HOURS ORAL 10/09/19 21:00 11/08/19 20:59 10/10/19 09:57 Assessment/Plan Assessment/Plan IMPRESSION: 1. Syncope. 2. HIV. 3. Hypertension. DISCUSSION: Currently, the patient is saturating well on room air. We will continue to monitor. Empiric antibiotics have been given as well as fluids. I will follow carefully. Shanice Ochoa Omar Syed MD October 10, 2019 11:00
[2019-10-10 12:00] VITALS: BP 145/72
--- NOTE | 2019-10-10 12:42 | Cardiac Electrophysiology PN ---
Assessment/Plan Assessment/Plan 1. Bradycardia. Not hypothyroid by thyroid function tests and completely ruled out for IL. Echocardiogram pending 2. HIV. The patient was on anti-retroviral therapy. 3. Weakness and dizziness. The patient is being ruled out for COVID. carotid duplex and echo pending DW RN Subjective Subjective Alert and responsive in NAD IV fluid were DCed. Had avani down to 49. Covid is pending. Says will leave AMA by 6 pm today! Objective Last 24 Hour Vital Signs Date Time Temp Pulse Resp B/P (MAP) Pulse Ox O2 Delivery O2 Flow Rate FiO2 10/10/19 08:00 Room Air 10/10/19 08:00 60 10/10/19 08:00 97.5 62 16 140/67 (91) 98 10/10/19 04:00 Room Air 10/10/19 04:00 50 10/10/19 04:00 97.9 50 14 110/70 (83) 100 10/10/19 00:00 56 10/10/19 00:00 Room Air 10/10/19 00:00 97.8 56 14 132/80 (97) 100 10/09/19 20:00 53 10/09/19 20:00 97.9 53 18 130/70 (90) 100 10/09/19 20:00 Room Air 10/09/19 16:00 Room Air 10/09/19 16:00 97.7 67 18 141/86 (104) 100 67 10/09/19 16:00 68 Intake and Output 10/09/19 10/10/19 19:00 07:00 Intake Total 420 ml 754 ml Output Total 1400 ml 1000 ml Balance -980 ml -246 ml IV Total 420 ml 754 ml Output Urine Total 1400 ml 1000 ml # Voids 6 4 # Bowel Movements 1 2 Laboratory Tests Test 10/10/19 04:00 White Blood Count 5.8 K/UL (4.8-10.8) Red Blood Count 4.28 M/UL (4.70-6.10) L Hemoglobin 13.8 G/DL (14.2-18.0) L Hematocrit 38.7 % (42.0-52.0) L Mean Corpuscular Volume 90 FL (80-99) Mean Corpuscular Hemoglobin 32.3 PG (27.0-31.0) H Mean Corpuscular Hemoglobin Concent 35.7 G/DL (32.0-36.0) Red Cell Distribution Width 11.0 % (11.6-14.8) L Platelet Count 171 K/UL (150-450) Mean Platelet Volume 5.9 FL (6.5-10.1) L Neutrophils (%) (Auto) 42.9 % (45.0-75.0) L Lymphocytes (%) (Auto) 48.1 % (20.0-45.0) H Monocytes (%) (Auto) 6.0 % (1.0-10.0) Eosinophils (%) (Auto) 2.0 % (0.0-3.0) Basophils (%) (Auto) 0.9 % (0.0-2.0) Sodium Level 145 MMOL/L (136-145) Potassium Level 4.4 MMOL/L (3.5-5.1) Chloride Level 112 MMOL/L (98-107) H Carbon Dioxide Level 26 MMOL/L (21-32) Anion Gap 8 mmol/L (5-15) Blood Urea Nitrogen 19 mg/dL (7-18) H Creatinine 1.0 MG/DL (0.55-1.30) Estimat Glomerular Filtration Rate > 60 mL/min (>60) Glucose Level 96 MG/DL (74-106) Hemoglobin A1c 5.6 % (4.3-6.0) Uric Acid 5.1 MG/DL (2.6-7.2) Calcium Level 8.6 MG/DL (8.5-10.1) Phosphorus Level 3.4 MG/DL (2.5-4.9) Magnesium Level 1.9 MG/DL (1.8-2.4) Total Bilirubin 0.4 MG/DL (0.2-1.0) Gamma Glutamyl Transpeptidase 37 U/L (5-85) Aspartate Amino Transf (AST/SGOT) 21 U/L (15-37) Alanine Aminotransferase (ALT/SGPT) 31 U/L (12-78) Alkaline Phosphatase 62 U/L (46-116) Troponin I 0.003 ng/mL (0.000-0.056) Total Protein 5.9 G/DL (6.4-8.2) L Albumin 3.1 G/DL (3.4-5.0) L Globulin 2.8 g/dL Albumin/Globulin Ratio 1.1 (1.0-2.7) Triglycerides Level 188 MG/DL (30-150) H Cholesterol Level 144 MG/DL (< 200) LDL Cholesterol 70 mg/dL (<100) HDL Cholesterol 42 MG/DL (40-60) Cholesterol/HDL Ratio 3.4 (3.3-4.4) Thyroid Stimulating Hormone (TSH) 1.063 uiU/mL (0.358-3.740) Free Thyroxine 0.95 NG/DL (0.76-1.46) Microbiology Date/Time Source Procedure Growth Status 10/08/19 16:00 Urine,Clean Catch Urine Culture - Preliminary NO GROWTH AFTER 24 HOURS Resulted Objective HEAD AND NECK: Show no JVD. LUNGS: Clear. CARDIOVASCULAR: Shows regular S1 and S2 with no gallop. ABDOMEN: Soft. EXTREMITIES: No pitting edema. Maynor Stuart MD October 10, 2019 12:42
--- NOTE | 2019-10-10 14:19 | NUR ---
CASE MANAGEMENT: REVIEW 10/10/2019 SI:NEAR SYNCOPE. HTN. COVID TESTING PENDING VS: T 97.5 HR 62 RR 16 B/P 140/67 SATS 98% ON RA LABS: CL 112 BUN 19 IS:PROTONIX PO Q12H SDU PLAN OF CARE: TRANSFER TO TELE carotid duplex 2D ECHO 65%
--- NOTE | 2019-10-10 14:30 | NUR ---
NURSE NOTES: Dr. Adrian called nurse station gave telephone order, "Discharge home with [facility], , can discharge if cleared by Dr. Stuart, resume home medications, discontinue hospital medications." Order entered, noted, and carried out.
--- NOTE | 2019-10-10 14:40 | NUR ---
NURSE NOTES: Per Dr. Bolanos patient is not cleared to be discharged from cardiology perspective. Noted.
--- NOTE | 2019-10-10 14:45 | NUR ---
NURSE NOTES: Patient is alert and oriented x 4. Explained to patient stipulations for discharge, need to be cleared by cardiology - Dr. Stuart, before they can be discharged. Explained to patient they are not cleared from Dr. Stuart at this time to be discharged. Patient verbalized understanding and states, "I can't wait and I want to leave now." Explained to patient they will be leaving hospital against medical advice and will need to sign a Against Medical Advice document. Patient verbalized understanding and signed Against Medical Advice form. Copy given to patient and copy placed in chart. Also, patient is currently waiting to be ruled out for COVID-19 as PUI, results for test has not arrived yet, charge nurse and signal supervisor aware. Educated patient on self quarantine for 2 weeks. Information document given to patient, patient verbalized understanding. Dr. Adrian made aware of patient leaving AMA, Dr. Adrian acknowledged. Noted.
[2019-10-10] MEDS ORDERED: D5 1/2NS 1000ml IV ONE (15:46)
--- NOTE | 2019-10-10 15:47 | NUR ---
NURSE NOTES: Patient left hospital Against Medical Advice. AMA form signed and placed in chart. Patient left hospital with all belongings and in stable condition. Charge nurse made aware.
--- NOTE | 2019-10-12 10:58 | Discharge Summary ---
Discharge Summary Discharge Summary _ DATE OF ADMISSION: 10/08/2019 DATE OF DISCHARGE: 10/10/2019 Patient left AGAINST MEDICAL ADVICE REASON FOR ADMISSION: 59 years old male with past medical history of hypertension, CVA, HIV, presented by paramedics with lightheadedness. Patient was ambulated in the hot sun prior to onset of the symptoms. He denied fever or vomiting Patient reported taking antiviral medication with previously normal viral load and CD4 count. He denied chest pain or abdominal pain . Upon evaluation patient was hypotensive, but afebrile , and pulse oximetry was stable on room air. Laboratory work-up revealed no leukocytosis ,stable hemoglobin ,hematocrit and platelet count. Stable electrolytes. BUN 39 creatinine 2.4. Glucose 151. Stable LFT. Troponin negative, pro BNP 86. D-dimer 0.34. EKG revealed sinus rhythm no acute ischemic changes. Urinalysis revealed +2 protein , moderate bacteria but no pyuria, +1 leukocyte esterase. Chest x-ray demonstrated clear lungs and pleural spaces. In emergency department patient received IV fluids and admitted to stepdown unit for syncope and acute kidney injury. Patient was also swabbed for COVID-19. CONSULTANTS: account resolution analyst Dr. Arreola pulmonary Dr. Morales ID specialist Dr. Dez Moon first grade teacher Dr. Lambert [facility] COURSE: Patient admitted to stepdown unit. Patient was kept in isolation. Syncope work-up initiated. Patient started on IV hydration. Blood pressure was closely monitored and improved with IV hydration . Patient noted to have bradycardia. Echocardiogram revealed preserved ejection fraction of 65% with no evidence of wall motion abnormality. Mild left ventricular hypertrophy. No evidence of pericardial effusion. Repeated troponin was negative as well , patient remained in sinus rhythm. sinus bradycardia. Patient was ruled out for acute myocardial infarction. Thyroid function test stable . Carotid duplex was ordered and was pending as well as neurology evaluation. Lipid panel stable, except slightly elevated triglycerides 188. Patient was educated on low-fat low-cholesterol diet. Antiretroviral therapy continued. ID specialist recommended to keep patient off antibiotics. Urine culture revealed no evidence of growth. SARS-CoV-2c by PCR came back not detected. Isolation discontinued. Renal parameters and electrolytes were closely monitored. Electrolytes corrected as needed. Nephrotoxins were avoided. Renal parameters improved with IV hydration. IV fluids discontinued. Patient was encouraged liberal oral intake. Prior to signing AMA creatinine down to 1.0 from initial 2.4 ,BUN down to 19 from initial 39. Discharge plan was inplace after evaluation by neurologist. On 10/09 patient decided to sign AGAINST MEDICAL ADVICE. The risks and consequences of signing AGAINST MEDICAL ADVICE were discussed with patient in detail. Patient verbalized understanding, nevertheless signed AMA form and left. FINAL DIAGNOSES: Syncope with lightheadedness and dizziness, likely due to hypotension Hypotension, secondary to dehydration Acute kidney injury, likely due to dehydration -resolved Proteinuria Bradycardia Suspected COVID-19 - ruled out HIV status History of CVA I have been assigned to dictate discharge summary for this account. I was not involved in the patient's management. Rona Whelan NP October 12, 2019 10:58
== END 2019-10-10 15:47 | disposition left against medical advice (07) | DRG 684 ==
LOC: EDBD 15:03 → EMR 15:50 → 2W 16:30 → EDBEDREQ 17:15 → EDBEDREQSVC 17:15 → EDBEDREQ 17:41 → EDBEDREQSVC 17:57 → EDBEDREQ 17:57 → 2W 22:14
DX: N17.9 Acute kidney failure, unspecified (principal); I95.9 Hypotension, unspecified; Z88.1 Allergy status to other antibiotic agents; Z88.2 Allergy status to sulfonamides; Z86.73 Personal history of transient ischemic attack (TIA), and cerebral infarction without residual deficits; E86.0 Dehydration; R00.1 Bradycardia, unspecified
CPT/HCPCS: 36415; 71045; 80053; 80061; 81003; 82550; 82977; 83036; 83690; 83735; 83880; 84100; 84439; 84443; 84484; 84550; 85007; 85025; 85379; 86850; 86900; 86901; 87086; 87635; 93005; 93306; 96361; 96365; 99285; J7030